=== PATIENT | female | born 1960 | race Two or more races ===

== ENCOUNTER 2020-07-03 05:51 | Day surgery (SDC) | payer OTHER ==
[2020-07-02 10:40] LABS: BASOPHILS % (AUTO) 2 % (0-1); EOSINOPHILS % (AUTO) 6 % (1-7); LYMPHOCYTES % (AUTO) 17 % (22-44); MEAN CORPUSCULAR HEMOGLOBIN 30.3 pg (27.0-34.8); MEAN CORPUSCULAR HGB CONC 33.6 g/dL (32.4-35.8); MEAN PLATELET VOLUME 8.2 fL (7.4-10.4); MONOCYTES % (AUTO) 8 % (2-9); NEUTROPHILS % (AUTO) 68 % (42-75); PLATELET COUNT 303 x10^3/uL (130-400); RED BLOOD COUNT 2.28 x10^6/uL (3.82-5.3); RED CELL DISTRIBUTION WIDTH 13.4 % (9.6-15.2)
[2020-07-02 10:51] LABS: ALANINE AMINOTRANSFERASE 24 U/L (12-78); ALBUMIN 3.6 g/dL (3.4-5.0); ANION GAP 12 mmol/L (5-15); CALCIUM 8.8 mg/dL (8.5-10.1); CHLORIDE 104 mmol/L (98-107); CREATININE 9.61 mg/dL (0.55-1.02)
[2020-07-02 10:53] LABS: INTERNATIONAL NORMALIZED RATIO 1.07 (0.93-1.1); PROTHROMBIN TIME 11.4 Seconds (9.6-11.5)
[2020-07-02 10:54] LABS: ALKALINE PHOSPHATASE 45 U/L (45-117); BILIRUBIN,TOTAL 0.3 mg/dL (0.2-1.0); TOTAL PROTEIN 7.1 g/dL (6.4-8.2)
[2020-07-02 11:06] LABS: MD SCAN
[~2020-07-03] VITALS: Ht 154.9 cm; Wt 86.0 kg
[~2020-07-03 05:51] MED LIST: AMLO-150 PO; ASPI81TA45 PO; ATEN25TA PO; CHOL10003 PO; FERR324T5 PO; FURO80TA3 PO; GLIP5TAB10 PO; LISI5TAB7 PO; LOSA25TA25 PO; LOVA10TA PO; PIOG30TA68 PO; SODI650T PO
[2020-07-03] MEDS ORDERED: CHLORHEXIDINE 15 ML UDC ONE (06:43)
[2020-07-03] MEDS ORDERED: EPINEPHRINE 1 MG/ML, 1ML ONE (06:58)
[2020-07-03] MEDS ORDERED: BUPIVACAINE/PF 0.5% ONE (06:58)
[2020-07-03] MEDS ORDERED: SODIUM CHLORIDE 0.9% 1,000 ML IV SCH (07:00)
[2020-07-03] MEDS ORDERED: CHLORHEXIDINE 15 ML UDC PO ONE (07:00)
[2020-07-03] MEDS ORDERED: ERGO500017 PO (07:07)
[2020-07-03] MEDS ORDERED: FENTANYL PF 250 MCG/5ML ONE (07:09)
[2020-07-03] MEDS ORDERED: LIDOCAINE-MPF 2% ,5ML ONE (07:10)
[2020-07-03] MEDS ORDERED: ROCURONIUM 10MG/ML,5ML ONE (07:10)
[2020-07-03] MEDS ORDERED: MIDAZOLAM 1 MG/ML, 2ML ONE (07:10)
[2020-07-03] MEDS ORDERED: SUCCINYLCHOLINE 20 MG/ML, 10ML ONE (07:10)
[2020-07-03] MEDS ORDERED: PROPOFOL 10 MG/ML, 20ML ONE (07:10)
[2020-07-03] MEDS ORDERED: DEXAMETHASONE 4 MG/ML, 5ML ONE ×2 (07:16→08:35)
[2020-07-03 07:39] VITALS: BP 178/76
[2020-07-03] MEDS ORDERED: CEFAZOLIN 1,000 MG ONE (07:43)
[2020-07-03] MEDS ORDERED: BUPIVACAINE/PF-EPI 0.5% 1:200K INFIL ONE (07:56)
[2020-07-03] MEDS ORDERED: DARBEPOETIN 25 MCG/ML SQ ONE (08:30)
[2020-07-03] MEDS ORDERED: NEOSTIGMINE 1 MG/ML, 10ML ONE ×2 (08:35)
[2020-07-03] MEDS ORDERED: ONDANSETRON 2MG/ML, 2ML ONE ×2 (08:35)
[2020-07-03] MEDS ORDERED: GLYCOPYRROLATE 0.2MG/1ML, 5ML ONE (08:35)
[2020-07-03] MEDS ORDERED: OXYcodone 5 MG/5 ML ORAL.SOL UDC PO PRN (09:00)
[2020-07-03] MEDS ORDERED: DIAZEPAM 5 MG/ML, 2ML IVPush PRN (09:00)
[2020-07-03] MEDS ORDERED: LABETALOL 5MG/ML, 20ML IV PRN (09:00)
[2020-07-03] MEDS ORDERED: ACETAMINOPHEN 325 MG TABLET PO PRN (09:00)
[2020-07-03] MEDS ORDERED: HYDROcodone/APAP 7.5-325MG/15ML UDC PO PRN (09:00)
[2020-07-03] MEDS ORDERED: hydrALAzine 20 MG/ML, 1ML IV PRN (09:00)
[2020-07-03] MEDS ORDERED: MEPERIDINE/PF 25MG/0.5ML IVPush PRN (09:00)
[2020-07-03] MEDS ORDERED: PROMETHAZINE 25 MG/ML, 1ML IVPush PRN (09:00)
[2020-07-03] MEDS ORDERED: ONDANSETRON 2MG/ML, 2ML IVPush PRN (09:00)
[2020-07-03] MEDS ORDERED: DIPHENHYDRAMINE 50 MG/ML, 1ML IVPush PRN ×2 (09:00)
[2020-07-03] MEDS ORDERED: PROMETHAZINE 12.5 MG SUPP PR PRN (09:00)
[2020-07-03] MEDS ORDERED: FENTANYL PF 100 MCG/2ML IV PRN (09:00)
[2020-07-03] MEDS ORDERED: MIDAZOLAM 1 MG/ML, 2ML IV PRN (09:00)
[2020-07-03] MEDS ORDERED: ALBUTEROL SULFATE 2.5 MG/3 ML NPPB PRN (09:00)
[2020-07-03] MEDS ORDERED: HYDROmorphone 1 MG/ML, 1ML INJ IVPush PRN (09:00)
[2020-07-03] MEDS ORDERED: EPHEDRINE 50 MG/ML, 1ML IVPush PRN (09:00)
== END 2020-07-03 11:00 | disposition home or self-care (01) ==
LOC: OUT 05:51
PROVIDERS: ATTEND Surgery
DX: E11.22 Type 2 diabetes mellitus with diabetic chronic kidney disease (principal); I12.0 Hypertensive chronic kidney disease with stage 5 chronic kidney disease or end stage renal disease; N18.5 Chronic kidney disease, stage 5; K66.0 Peritoneal adhesions (postprocedural) (postinfection); E66.9 Obesity, unspecified; D64.9 Anemia, unspecified; Z20.822 Contact with and (suspected) exposure to COVID-19; Z68.34 Body mass index [BMI] 34.0-34.9, adult; Z79.82 Long term (current) use of aspirin; Z79.84 Long term (current) use of oral hypoglycemic drugs; Z79.899 Other long term (current) drug therapy; Z88.2 Allergy status to sulfonamides; Z91.041 Radiographic dye allergy status; Z90.49 Acquired absence of other specified parts of digestive tract; Z98.1 Arthrodesis status; Z98.890 Other specified postprocedural states; Z82.49 Family history of ischemic heart disease and other diseases of the circulatory system
CPT/HCPCS: 36415; 49324; 71046; 80053; 82962; 85025; 85610; 85730; 86850; 86900; 93005; C1750; J0171; J0330; J0690; J1100; J2250; J2405; J2704; J2710; J3010; J7030; U0003